=== PATIENT | female | born 2000 | race Caucasian/White ===

== ENCOUNTER 2021-08-06 15:33 | Outpatient (CLI) | payer OTHER, SELFPAY ==
[2021-08-06 16:24] LABS: Amphetamine Urine VISTA NEGATIVE (<1000 ng/mL); Barbiturate Urine VISTA NEGATIVE (< 200 ng/mL); Benzodiazepine Urine VISTA NEGATIVE (< 200 ng/mL); Cocaine Urine VISTA NEGATIVE (< 300 ng/mL); Ecstacy Urine VISTA NEGATIVE (< 500 ng/mL); Methadone Urine VISTA NEGATIVE (< 300 ng/mL); PCP Urine VISTA NEGATIVE (< 25 ng/mL); THC Urine VISTA NEGATIVE (< 50 ng/mL); Vista UDS pH Range 6
== END 2021-08-06 23:59 | disposition home or self-care (01) ==
LOC: LABSPEC 15:35
PROVIDERS: Visit Provider Obstetrics & Gynecology
DX: Z34.92 Encounter for supervision of normal pregnancy, unspecified, second trimester (principal)
CPT/HCPCS: 80307

== ENCOUNTER → 2021-09-21 | Outpatient (CLI) | payer OTHER, SELFPAY ==
[2021-09-21 15:50] LABS: Absolute Lymphocyte Count 1.03 X10^3/uL (0.83-4.51); Basophil# 0.02 X10^3/uL; Basophil% 0.2 % (0-1); Eosinophil# 0.17 X10^3/uL; Eosinophils% 1.9 % (0-5); Hematocrit 32.1 % (37-47); Hemoglobin 10.8 g/dL (12.0-15.0); Lymphocyte # 1.03 X10^3/ul (0.83-4.51); Lymphocyte % 11.7 % (19-41); Mean Corp Hgb Conc 33.6 g/dL (32-36); Mean Corpuscular Hgb 30.9 pg (27.0-32.0); Mean Corpuscular Volume 91.7 fL (81-99); Mean Platelet Vol. 10.2 fl (6.2-12.0); Monocyte# 0.47 X10^3/uL; Monocyte% 5.4 % (0-10); NRBC Flagged by Analyzer 0 % (0-5); Neutrophil # 6.99 X10^3/uL (2.7-7.7); Neutrophil % 79.8 % (47-70); Platelet Count 229 K/mm3 (150-450); RBC Distribution Width CV 12.4 % (11.6-14.6); RBC Distribution Width SD 41.1 fl (35.1-43.9); White Blood Count 8.8 K/mm3 (4.4-11.0)
[2021-09-21 16:25] LABS: Glucose Challenge Gest 1H 50g 189 mg/dL (70-140)
[2021-09-24 09:09] LABS: Hepatitis B Surface Antigen Non-Reactive (Nonreactive)
== END | disposition home or self-care (01) ==
LOC: LAB 15:26
PROVIDERS: Obstetrics & Gynecology; Visit Provider Obstetrics & Gynecology
DX: O26.899 Other specified pregnancy related conditions, unspecified trimester (principal); Z67.91 Unspecified blood type, Rh negative; Z3A.18 18 weeks gestation of pregnancy
CPT/HCPCS: 36415; 82950; 85025; 86850; 86900; 86901; 87340

== ENCOUNTER 2021-10-02 10:00 | Outpatient (RCR) | payer SELFPAY | END 2021-10-02 23:59 | LOC: DC 10:00 | PROVIDERS: Referring Provider Nurse Practitioner Women's Health; Visit Provider Nurse Practitioner Women's Health | DX: O24.419 Gestational diabetes mellitus in pregnancy, unspecified control (principal) | CPT/HCPCS: 87070; 87205; 97802; 97803 ==

== ENCOUNTER 2021-10-10 14:22 | Outpatient (RCR) | payer OTHER, MEDICAID, SELFPAY | END 2021-11-01 23:59 | LOC: DC 14:22 | PROVIDERS: Referring Provider Nurse Practitioner Women's Health; Visit Provider Nurse Practitioner Women's Health | DX: O24.419 Gestational diabetes mellitus in pregnancy, unspecified control (principal); Z3A.00 Weeks of gestation of pregnancy not specified | CPT/HCPCS: 97803 ==

== ENCOUNTER → 2021-10-19 | Outpatient (CLI) | payer OTHER, SELFPAY ==
[2021-10-19 13:39] LABS: Absolute Lymphocyte Count 1.04 X10^3/uL (0.83-4.51); Absolute Neutrophil Count 5.8 X10^3/uL (2.0-7.7); Basophil# 0.02 X10^3/uL; Basophil% 0.3 % (0-1); Eosinophil# 0.14 X10^3/uL; Eosinophils% 1.8 % (0-5); Hematocrit 32.6 % (37-47); Lymphocyte # 1.04 X10^3/ul (0.83-4.51); Lymphocyte % 13.6 % (19-41); Mean Corp Hgb Conc 33.7 g/dL (32-36); Mean Corpuscular Hgb 30.7 pg (27.0-32.0); Mean Corpuscular Volume 91.1 fL (81-99); Mean Platelet Vol. 10.2 fl (6.2-12.0); Monocyte# 0.55 X10^3/uL; Monocyte% 7.2 % (0-10); NRBC Flagged by Analyzer 0 % (0-5); Neutrophil # 5.81 X10^3/uL (2.7-7.7); Neutrophil % 75.9 % (47-70); Platelet Count 216 K/mm3 (150-450); RBC Distribution Width CV 12.4 % (11.6-14.6); RBC Distribution Width SD 40.9 fl (35.1-43.9); Red Blood Count 3.58 M/mm3 (4.2-5.4); White Blood Count 7.7 K/mm3 (4.4-11.0)
== END | disposition home or self-care (01) ==
LOC: LAB 12:29
PROVIDERS: Referring Provider Obstetrics & Gynecology; Visit Provider Obstetrics & Gynecology
DX: O99.013 Anemia complicating pregnancy, third trimester (principal); Z3A.00 Weeks of gestation of pregnancy not specified
CPT/HCPCS: 36415; 85025

== ENCOUNTER → 2021-11-16 | Outpatient (CLI) | payer OTHER, SELFPAY ==
--- NOTE | 2021-11-16 12:19 | US_ITS ---
STUDY: SECOND AND THIRD TRIMESTER OBSTETRICAL ULTRASOUND REASON FOR EXAM: Female, 21 years old growth LMP: 03/03/2021. TECHNIQUE: Transabdominal TECHNICAL QUALITY: Adequate. PRIOR ULTRASOUND: None. FINDINGS: There is a single intrauterine fetus. The fetus is in a cephalic presentation. There is demonstrated cardiac activity with a heart rate of 141 bpm. There is a normal amniotic fluid volume. The largest amniotic fluid pocket measures 3.5 cm x 2.4 cm. The amniotic fluid index (LEMUEL) is 8.11 cm. The placenta is posterior in location and is not low lying. There are Grade 1 placental changes. The adnexal regions are not visualized. BIOMETRY: BPD: 9.18 cm: 37 weeks, 1 days HC: 33.31 cm: 38 weeks, 0 days AC: 33.12 cm: 37 weeks, 0 days FL: 6.83 cm: 35 weeks, 0 days CI: 82% FL/BPD: 74% FL/HC: FL/AC: 21% HC/AC: 1.01 age by current US: 36 weeks, 6 days. JOELLE by current US: 12/08/2021. Estimated weight: 3006 grams, +/- 451 grams, 51 %. Age by LMP: 36 weeks, 6 days. JOELLE by LMP: 12/08/2021. US/OB Limited With Biometrics IMPRESSION: Single live intrauterine gestation with a mean gestational age of 36 weeks and 6 days. Electronically Signed: Devaughn Pope MD at 13:31 EDT ,
== END | disposition home or self-care (01) ==
PROVIDERS: Referring Provider Obstetrics & Gynecology; Visit Provider Obstetrics & Gynecology
DX: O24.410 Gestational diabetes mellitus in pregnancy, diet controlled (principal); Z3A.36 36 weeks gestation of pregnancy
CPT/HCPCS: 76816; 87081

== ENCOUNTER 2021-12-04 12:38 | Outpatient (CLI) | payer OTHER, SELFPAY ==
[2021-12-04 13:00] VITALS: BMI 34.9
[2021-12-04 13:06] VITALS: BP 132/62; PULSE 78; TEMP 36.9; O2SAT 98
[2021-12-04 13:40] LABS: ROM Internal Control Test YES-OK TO RESULT pt. (Internal QC); ROM Patient Test Negative (Negative)
--- NOTE | 2021-12-08 09:41 | OB.TRI.HP_ITS ---
HPI - General General Date of Admission: 12/08/21 HPI Narrative BOBBI HOWARD, is a 21 F who presents to L&D ( @ 39 weeks) for possible srom. no vaginal bleeding ,contractions, or dec fm. Maternal Data Information JOELLE Calculator Estimated Delivery Date Method Current WG Current Estimate 12/08/21 LMP (Certain) 40w 0d PFSH PFSH Medical History (Updated 12/08/21 @ 09:[address] Salena Navarrete, ) Gestational diabetes Headache Migraine Allergy/AdvReac Type Severity Reaction Status Date / Time No Known Allergies Allergy Verified 12/07/21 19:31 Family History Grandmother Breast cancer Ovarian cancer Diabetes Grandfather Heart disease Surgical History (Updated 12/08/21 @ 09:[address] Salena Navarrete, ) [place] teeth removed Social History Smoking Status: Never smoker alcohol intake: never substance use type: does not use caffeine: Yes what type of physical activity do you participate in: none 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 History 1 Elective abortions Hx Para 0 Spontaneous abortions Hx # Term Pregnancies Ectopic pregnancies Hx # Pregnancies Multiple births # of living children Visit Details Expected Delivery Route/Plan IOL by 39-40 Labor Preferences- CB/BF classes: labor support person: mynor labor intervention preferences: [] pain management options preferred: open to epidural cut cord/dad catch: [] : [] PP control planned: [] discussed possible routes of delivery and associated risks: [] special requests: [] Plans Covid status: discussed Flu vaccine: discussed Tdap vaccine: given Rhogam:given LARC form signed: declined movement and labor precautions reviewed. Problem list reviewed and updated with the most current plan of care details and appropriate orders placed. Relevant counseling for the gestational age provided. Continue routine care and follow up unless otherwise noted in visit notes/problem list details OB Flowsheet Initial Weight: Not Recorded Date -?-?-?-?-?-?-?-?-?-?-?-?- EGA Weight BP Urine Prot -?-?-?-?-?-?-?--?-?-?-?-?- Glucose FHR FuHt Pres Dilation -?-?-?-?-?-?-?-?-?-?-?-?- Effaced St Visit Note 05/14/21 -?-?-?-?-?-?-?-?-?-?-?-?- 10w 2d 170 lb 118/80 -?-?-?-?-?-?-?-?-?-?-?-?- 165 -?-?-?-?-?-?-?-?-?-?-?-?- JV- transfer ob in from [place]. waiting on lab, notes, and ultrasound. declines genetic testing 06/13/21 -?-?-?-?-?-?-?-?-?-?-?-?- 14w 4d 174 lb 4 oz 120/80 Nega tive -?-?-?-?-?-?-?-?-?-?-?-?- Negative 145 -?-?-?-?-?-?-?-?-?-?-?-?- JV- no lof, vagi nal bleeding or cramping. records from [facility] are in chart. 07/09/21 -?-?-?-?-?-?-?-?-?-?-?-?- 18w 2d 175 lb 118/80 Negative -?-?-?-?-?-?-?-?-?-?-?-?- Negative 145 -?-?-?-?-?-?-?-?-?-?-?-?- SM- no vb lof cr amping US scheduled 08/06/21 -?-?-?-?-?-?-?-?-?-?-?-?- 22w 2d 183 lb 118/74 -?-?-?-?-?-?-?-?-?-?-?-?- 148 -?-?-?-?-?-?-?-?-?-?-?-?- MH-No VB, LOF. G [place] FM. Will complete anatomy US next week. 09/05/21 -?-?-?-?-?-?-?-?-?-?-?-?- 26w 4d 189 lb 8 oz 110/70 Nega tive -?-?-?-?-?-?-?-?-?-?-?-?- Negative 138 25 -?-?-?-?-?-?-?-?-?-?-?-?- JV- no lof, vagi nal bleeding, or cramping other than some round ligament pain when walking. gct ordered for next visit 09/21/21 -?-?-?-?-?-?-?-?-?-?-?-?- 28w 6d 193 lb 120/84 Negative -?-?-?-?-?-?-?-?-?-?-?-?- Negative 135 29 -?-?-?-?-?-?-?-?-?-?-?-?- SM- no vb lof go od fm no regular ctx rhogam and tdap today 09/26/21 -?-?-?-?-?-?-?-?-?-?-?-?- 29w 4d 194 lb 4 oz 122/60 Nega tive -?-?-?-?-?-?-?-?-?-?-?-?- Negative 143 -?-?-?-?-?-?-?-?-?-?-?-?- -work in for v aginal itching. No VB, LOF. Good FM. Normal pelvic exam, culture pending. 10/05/21 -?-?-?-?-?-?-?-?-?-?-?-?- 30w 6d 195 lb 4 oz 122/66 Nega tive -?-?-?-?-?-?-?-?-?-?-?-?- Negative 130 32 -?-?-?-?-?-?-?-?-?-?-?-?- Sm- no vb lof go od fm no reular ctx BS well controlled 10/19/21 -?-?-?-?-?-?-?-?-?-?--?-?- 32w 6d 197 lb 122/58 -?-?-?-?-?-?-?-?-?-?-?-?- 160 33 -?-?-?-?-?-?-?-?-?-?-?-?- SM- no vb lof go od fm no regular ctx BS well controlled. 11/02/21 -?-?-?-?-?-?-?-?-?-?-?-?- 34w 6d 199 lb 2 oz 120/78 Nega tive -?-?-?-?-?-?-?-?-?-?-?-?- Negative 150 35 0 -?-?-?-?-?-?-?-?--?-?-?-?- 0 -4 JV- pt req uesting vag exam as going to [place] for vacation. labor precautions discussed. GBS next visit. 11/16/21 -?-?-?-?-?-?-?-?-?-?-?-?- 36w 6d 203 lb 120/76 Negative -?-?-?-?-?-?-?-?-?-?-?-?- Negative 150 38 Cephalic -?-?-?-?-?-?-?-?-?-?-?-?- SM- no vb lof go od fm no regular ctx 11/23/21 -?-?-?-?-?-?-?-?-?-?-?-?- 37w 6d 205 lb 136/82 -?-?-?-?-?-?-?-?-?-?-?-?- 140 38 Cephalic 1 -?-?-?-?-?-?-?-?-?-?-?-?- 60 -3 SM- no vb lof good fm no regular ctx BS well controlled 11/29/21 -?-?-?-?-?-?-?-?-?-?-?-?- 38w 5d 209 lb 118/80 Negative -?-?-?-?-?-?-?-?-?-?-?-?- Negative 156 38 Cephalic 1 -?-?-?-?-?-?-?-?-?-?-?-?- 60 -3 JV-normal glucose, no lof, va ginal bleeding or dec fm. ROS Constitutional Constitutional: Reports systems reviewed and no addt'l complaints, except as documented Gastrointestinal Gastrointestinal: Denies bloating, constipation, cramping, diarrhea, nausea or vomiting Genitourinary Genitourinary: Reports other Details: Denies vaginal odor, vaginal bleeding, or vaginal discharge ; Denies difficulty urinating or flank pain Physical Exam HEENT normocephalic Resp normal respiratory effort and normal air movement no CVA tenderness Extremity normal to inspection General Extremity: edema bilateral (trace ) NST FHR Rate Baby A Baseline: 140 Variability:: Moderate Accelerations:: 15 x 15 Decelerations:: None NST Reactive:: Yes FHR Category:: Category I Assessment & Plan (1) False labor: PLAN: plan for IOL at 39 weeks 6 days (GDMA1) labor precautions discussed Charges/Coding Multi Select Codes Visit Charges Office Visit/Consults: 94964 OV L3 Est Urinary/Genital Urinary/Genital CPT Codes: 73401-36 non-stress test Interp
--- NOTE | 2021-12-08 09:41 | OB.TRI.NOTE ---
HPI - General General Date of Admission: 12/08/21 HPI Narrative BOBBI HOWARD, is a 21 F who presents to L&D ( @ 39 weeks) for possible srom. no vaginal bleeding ,contractions, or dec fm. Maternal Data Information JOELLE Calculator Estimated Delivery Date Method Current WG Current Estimate 12/08/21 LMP (Certain) 40w 0d PFSH PFSH Medical History (Updated 12/08/21 @ 09:[address] Salena Navarrete, ) Gestational diabetes Headache Migraine Allergy/AdvReac Type Severity Reaction Status Date / Time No Known Allergies Allergy Verified 12/07/21 19:31 Family History Grandmother Breast cancer Ovarian cancer Diabetes Grandfather Heart disease Surgical History (Updated 12/08/21 @ 09:[address] Salena Navarrete, ) [place] teeth removed Social History Smoking Status: Never smoker alcohol intake: never substance use type: does not use caffeine: Yes what type of physical activity do you participate in: none 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 History 1 Elective abortions Hx Para 0 Spontaneous abortions Hx # Term Pregnancies Ectopic pregnancies Hx # Pregnancies Multiple births # of living children Visit Details Expected Delivery Route/Plan IOL by 39-40 Labor Preferences- CB/BF classes: labor support person: mynor labor intervention preferences: [] pain management options preferred: open to epidural cut cord/dad catch: [] : [] PP control planned: [] discussed possible routes of delivery and associated risks: [] special requests: [] Plans Covid status: discussed Flu vaccine: discussed Tdap vaccine: given Rhogam:given LARC form signed: declined movement and labor precautions reviewed. Problem list reviewed and updated with the most current plan of care details and appropriate orders placed. Relevant counseling for the gestational age provided. Continue routine care and follow up unless otherwise noted in visit notes/problem list details OB Flowsheet Initial Weight: Not Recorded Date <del>?</del> EGA Weight BP Urine Prot <del>?</del> Glucose FHR FuHt Pres Dilation <del>?</del> Effaced St Visit Note 05/14/21 <del>?</del> 10w 2d 170 lb 118/80 <del>?</del> 165 <del>?</del> JV- transfer ob in from [place]. waiting on lab, notes, and ultrasound. declines genetic testing 06/13/21 <del>?</del> 14w 4d 174 lb 4 oz 120/80 Negative <del>?</del> Negative 145 <del>?</del> JV- no lof, vaginal bleeding or cramping. records from [facility] are in chart. 07/09/21 <del>?</del> 18w 2d 175 lb 118/80 Negative <del>?</del> Negative 145 <del>?</del> SM- no vb lof cramping US scheduled 08/06/21 <del>?</del> 22w 2d 183 lb 118/74 <del>?</del> 148 <del>?</del> MH-No VB, LOF. Good FM. Will complete anatomy US next week. 09/05/21 <del>?</del> 26w 4d 189 lb 8 oz 110/70 Negative <del>?</del> Negative 138 25 <del>?</del> JV- no lof, vaginal bleeding, or cramping other than some round ligament pain when walking. gct ordered for next visit 09/21/21 <del>?</del> 28w 6d 193 lb 120/84 Negative <del>?</del> Negative 135 29 <del>?</del> SM- no vb lof good fm no regular ctx rhogam and tdap today 09/26/21 <del>?</del> 29w 4d 194 lb 4 oz 122/60 Negative <del>?</del> Negative 143 <del>?</del> MH-work in for vaginal itching. No VB, LOF. Good FM. Normal pelvic exam, culture pending. 10/05/21 <del>?</del> 30w 6d 195 lb 4 oz 122/66 Negative <del>?</del> Negative 130 32 <del>?</del> Sm- no vb lof good fm no reular ctx BS well controlled 10/19/21 <del>?</del> 32w 6d 197 lb 122/58 <del>?</del> 160 33 <del>?</del> SM- no vb lof good fm no regular ctx BS well controlled. 11/02/21 <del>?</del> 34w 6d 199 lb 2 oz 120/78 Negative <del>?</del> Negative 150 35 0 <del>?</del> 0 -4 JV- pt requesting vag exam as going to [place] for vacation. labor precautions discussed. GBS next visit. 11/16/21 <del>?</del> 36w 6d 203 lb 120/76 Negative <del>?</del> Negative 150 38 Cephalic <del>?</del> SM- no vb lof good fm no regular ctx 11/23/21 <del>?</del> 37w 6d 205 lb 136/82 <del>?</del> 140 38 Cephalic 1 <del>?</del> 60 -3 SM- no vb lof good fm no regular ctx BS well controlled 11/29/21 <del>?</del> 38w 5d 209 lb 118/80 Negative <del>?</del> Negative 156 38 Cephalic 1 <del>?</del> 60 -3 JV-normal glucose, no lof, va ginal bleeding or dec fm. ROS Constitutional Constitutional: Reports systems reviewed and no addt'l complaints, except as documented Gastrointestinal Gastrointestinal: Denies bloating, constipation, cramping, diarrhea, nausea or vomiting Genitourinary Genitourinary: Reports other Details: Denies vaginal odor, vaginal bleeding, or vaginal discharge ; Denies difficulty urinating or flank pain Physical Exam HEENT normocephalic Resp normal respiratory effort and normal air movement no CVA tenderness Extremity normal to inspection General Extremity: edema bilateral (trace ) NST FHR Rate Baby A Baseline: 140 Variability:: Moderate Accelerations:: 15 x 15 Decelerations:: None NST Reactive:: Yes FHR Category:: Category I Assessment & Plan (1) False labor: PLAN: plan for IOL at 39 weeks 6 days (GDMA1) labor precautions discussed Charges/Coding Multi Select Codes Visit Charges Office Visit/Consults: 74164 OV L3 Est Urinary/Genital Urinary/Genital CPT Codes: 51795-31 non-stress test Interp
== END 2021-12-04 14:35 | disposition home or self-care (01) ==
LOC: WPOUT 12:51 → WP 12:52
PROVIDERS: Visit Provider Obstetrics & Gynecology
DX: O47.1 False labor at or after 37 completed weeks of gestation (principal); Z3A.39 39 weeks gestation of pregnancy
CPT/HCPCS: 59025; 59050; 84112; 99218; G0378

== ENCOUNTER 2021-12-07 07:10 | Inpatient (IN) | payer OTHER, SELFPAY ==
[2021-12-07] VITALS (48 sets, daily range): BP systolic 103–138; BP diastolic 50–70; PULSE 40–96; TEMP 36.1–37; O2SAT 97–100; BMI 35.2
[2021-12-07] MEDS: Lactated Ringers 1,000 ML 50 ML IV (07:35)
--- NOTE | 2021-12-07 07:36 | HP.PCM.OB_ITS ---
HPI - General General Date of Admission: 12/07/21 HPI Narrative BOBBI HOWARD, is a 21 y/o @ 39 weeks 6 days who presents to L&D for IOL for gestational diabetes, Diet controlled. Maternal Data Information JOELLE Calculator Estimated Delivery Date Method Current WG Current Estimate 12/08/21 LMP (Certain) 39w 6d PFSH PFSH Home Medications docosahexaenoic acid 200 mg capsule ( DHA) mg PO 05/14/21 [History Last Taken Unknown] blood sugar diagnostic (Blood Glucose Test strips) #50 ea 09/24/21 [Rx Last Taken Unknown] blood-glucose meter (Blood Glucose Monitoring kit) #1 ea 09/24/21 [Rx Last Taken Unknown] lancets 31 gauge #100 ea 09/24/21 [Rx Last Taken Unknown] [id number]-[id number] 1 mg tablet tab PO 12/04/21 [History Last Taken 11/02/21] Allergy/AdvReac Type Severity Reaction Status Date / Time No Known Allergies Allergy Verified 12/04/21 13:02 Family History Grandmother Breast cancer Ovarian cancer Diabetes Grandfather Heart disease Social History Smoking Status: Never smoker alcohol intake: never substance use type: does not use caffeine: Yes what type of physical activity do you participate in: none 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 History 1 Elective abortions Hx Para Spontaneous abortions Hx # Term Pregnancies Ectopic pregnancies Hx # Pregnancies Multiple births # of living children Visit Details Expected Delivery Route/Plan IOL by 39-40 Labor Preferences- CB/BF classes: labor support person: mynor labor intervention preferences: [] pain management options preferred: open to epidural cut cord/dad catch: [] : [] PP control planned: [] discussed possible routes of delivery and associated risks: [] special requests: [] Plans Covid status: discussed Flu vaccine: discussed Tdap vaccine: given Rhogam:given LARC form signed: declined movement and labor precautions reviewed. Problem list reviewed and updated with the most current plan of care details and appropriate orders placed. Relevant counseling for the gestational age provided. Continue routine care and follow up unless otherwise noted in visit notes/problem list details OB Flowsheet Initial Weight: Not Recorded Date -?-?-?-?--?-?-?-?-?-?-?-?- EGA Weight BP Urine Prot -?-?-?-?-?-?-?-?-?-?-?-?- Glucose FHR FuHt Pres Dilation -?-?-?-?-?-?-?-?-?-?-?-?- Effaced St Visit Note 05/14/21 -?-?-?-?-?-?-?-?-?-?-?-?- 10w 2d 170 lb 118/80 -?-?-?-?-?-?-?-?-?-?-?-?- 165 -?-?-?-?-?-?-?-?-?-?-?-?- JV- transfer ob in from [place]. waiting on lab, notes, and ultrasound. declines genetic testing 06/13/21 -?-?-?-?-?-?-?-?-?-?-?-?- 14w 4d 174 lb 4 oz 120/80 Nega tive -?-?-?-?-?-?-?-?-?-?-?-?- Negative 145 -?-?-?-?-?-?-?-?-?-?-?-?- JV- no lof, vagi nal bleeding or cramping. records from [facility] are in chart. 07/09/21 -?-?-?-?-?-?-?-?-?-?-?-?- 18w 2d 175 lb 118/80 Negative -?-?-?-?-?-?-?-?-?-?-?-?- Negative 145 -?-?-?-?-?-?-?-?-?-?-?-?- SM- no vb lof cr amping US scheduled 08/06/21 -?-?-?-?-?-?-?-?-?-?-?-?- 22w 2d 183 lb 118/74 -?-?-?-?-?-?-?-?-?-?-?-?- 148 -?-?-?-?-?-?-?-?-?-?-?-?- -No VB, LOF. G ood FM. Will complete anatomy US next week. 09/05/21 -?-?-?-?-?-?-?-?-?-?-?-?- 26w 4d 189 lb 8 oz 110/70 Nega tive -?-?-?-?-?-?-?-?-?-?-?-?- Negative 138 25 -?-?-?-?-?-?-?-?-?-?-?-?- JV- no lof, vagi nal bleeding, or cramping other than some round ligament pain when walking. gct ordered for next visit 09/21/21 -?-?-?-?-?-?-?-?-?-?-?-?- 28w 6d 193 lb 120/84 Negative -?-?--?-?-?-?-?-?-?-?-?-?- Negative 135 29 -?-?-?-?-?-?-?-?-?-?-?-?- SM- no vb lof go od fm no regular ctx rhogam and tdap today 09/26/21 -?-?-?-?-?-?-?-?-?-?-?-?- 29w 4d 194 lb 4 oz 122/60 Nega tive -?-?-?-?-?-?-?-?-?-?-?-?- Negative 143 -?-?-?-?-?-?-?-?-?-?-?-?- -work in for v aginal itching. No VB, LOF. Good FM. Normal pelvic exam, culture pending. 10/05/21 -?-?-?-?-?-?-?-?-?-?-?-?- 30w 6d 195 lb 4 oz 122/66 Nega tive -?-?-?-?-?-?-?-?-?-?-?-?- Negative 130 32 -?-?-?-?-?-?-?-?-?-?-?-?- Sm- no vb lof go od fm no reular ctx BS well controlled 10/19/21 -?-?-?-?-?-?-?-?-?-?-?-?- 32w 6d 197 lb 122/58 -?-?-?-?-?-?-?-?-?-?-?-?- 160 33 -?-?-?-?-?-?-?-?-?-?-?-?- SM- no vb lof go od fm no regular ctx BS well controlled. 11/02/21 -?-?-?-?-?-?-?-?-?-?-?-?- 34w 6d 199 lb 2 oz 120/78 Nega tive -?-?-?-?-?-?-?-?-?-?-?-?- Negative 150 35 0 -?-?-?-?-?-?-?-?-?-?-?-?- 0 -4 JV- pt req uesting vag exam as going to [place] for vacation. labor precautions discussed. GBS next visit. 11/16/21 -?-?-?-?-?-?-?-?-?-?-?-?- 36w 6d 203 lb 120/76 Negative -?-?-?-?-?-?-?-?-?-?-?-?- Negative 150 38 Cephalic -?-?-?-?-?-?-?-?-?-?-?-?- SM- no vb lof go od fm no regular ctx 11/23/21 -?-?-?-?-?-?-?-?-?-?-?-?- 37w 6d 205 lb 136/82 -?-?-?-?-?-?-?-?-?-?-?-?- 140 38 Cephalic 1 -?-?-?-?-?-?-?-?-?-?-?-?- 60 -3 SM- no vb lof good fm no regular ctx BS well controlled 11/29/21 -?-?-?-?-?-?-?-?-?-?-?-?- 38w 5d 209 lb 118/80 Negative -?-?-?-?-?-?-?-?-?-?-?-?- Negative 156 38 Cephalic 1 -?-?-?-?-?-?-?-?-?-?-?-?- 60 -3 JV-normal glucose, no lof, va ginal bleeding or dec fm. ROS Constitutional Constitutional: Denies change in weight, fatigue, fever(s), headache(s), poor appetite or weakness Eyes Eyes: Denies blurry vision, change in vision, seeing flashes or spots in vision ENT HEENT: Denies dizziness, headache(s), loss taste/smell or sore throat Cardiovascular Cardiovascular: Denies chest pain, dizziness, dyspnea, irregular heart rhythm, leg edema, palpitations, rapid heart rate or vomiting Respiratory/Chest Respiratory/Chest: Denies chest tightness, cough, dyspnea or breast pain Gastrointestinal Gastrointestinal: Denies abdominal pain, anorexia, constipation, cramping, diarrhea, hemorrhoids, vomiting or weight changes Genitourinary Genitourinary: Denies dysuria, flank pain, genital lesions, genital pain, urinary frequency or urinary urgency Musculoskeletal Musculoskeletal: Denies back pain, difficulty walking, joint pain, limited range of motion, muscle cramps or numbness Integumentary Integumentary: Denies lesions or unusual bruising Neurologic Neurologic: Denies abnormal movements, abnormal speech, dizziness, numbness, seizure-like activity or syncope Psychiatric Psychiatric: Denies anxiety, behavioral changes, change in appetite, change in libido, cognitive impairment, confusion, depression, difficulty concentrating, hallucinations or suicidal thoughts Endocrine Endocrinology: Denies excessive sweating, polydipsia or polyuria Hematologic/Lymphatic Hematologic/Lymphatic: Denies easy bleeding, easy bruising or lymphadenopathy Allergic/Immunologic Allergic/Immunologic: Denies itchy eyes, lip swelling, seasonal rhinorrhea, rhinitis, throat swelling, tongue swelling, eczemia, wheezing or asthma Vital Signs Vital Signs Vital Signs: 12/07/21 07:29 12/07/21 07:29 12/07/21 07:29 Pulse Rate 88 Blood Pressure 132/65 H BP Systolic 132 BP Diastolic 65 Pulse Ox 97 Physical Exam Const alert, oriented x3, no apparent distress and healthy appearing General Appearance: cooperative; Negative for anxious HEENT normocephalic Face and Sinus: normal facial exam Eyes EOMs intact bilaterally and no scleral icterus General Eye: normal appearance of both eyes Neck full ROM and supple Lymph Lymphatic: no lymphadenopathy noted Chest Chest: abnormal inspection of the chest Resp normal respiratory effort Effort and Inspection: able to speak in complete sentences Cardio regular rate GI soft to palpation and non-tender Inspection: gravid Palpation: soft; Negative for tender external exam normal Amniotic Fluid: ROM+plus Back/Spine no CVA tenderness Extremity normal to inspection, full ROM and no clubbing, cyanosis or edema General Extremity: Negative for calf tenderness or edema Skin Lesions: no lesions Rashes: no rashes Psych mental status grossly normal Labs Labs Labs: Blood Type A NEGATIVE Antibody Screen NEGATIVE Hct 32.6 % (37-47) L Hgb 11.0 g/dL (12.0-15.0) L Obstetrics US Hep Bs Antigen Non-Reactive (Nonreactive) Glucose 1 Hr 50 gm 189 mg/dL (70-140) H Assessment & Plan (1) Gestational diabetes: QUALIFIERS: Gestational diabetes mellitus control: diet-controlled Trimester: second trimester Qualified Code(s): O24.410 - Gestational diabetes mellitus in , diet controlled COMMENT: endocrine consult. diet controlled. plan growth us 36 weeks and deliver by 40. (2) Anemia affecting in third trimester: COMMENT: iron supplement repeat cbc 4 weeks (3) Rh negative status during : QUALIFIERS: Trimester: second trimester Qualified Code(s): O26.892 - Other specified related conditions, second trimester; Z67.91 - Unspecified blood type, Rh negative COMMENT: rhogam 09/21/21 (4) : QUALIFIERS: Weeks of gestation: 38 weeks Qualified Code(s): Z3A.38 - 38 weeks gestation of COMMENT: GBS NEGATIVE, anatomy nl, [facility]. carrier, genetic, ntd screening declined. (5) Supervision of normal : QUALIFIERS: Normal : normal first Trimester: second trimester Qualified Code(s): Z34.02 - Encounter for supervision of normal first , second trimester COMMENT: PRR JOELLE 12/08/21 girl Virgilio boyfrienshorty Lowe (6) Pituitary adenoma: COMMENT: followed by endo- stable and small, told to fu after delivery unless develops symptoms. PLAN: Plan Patient presents IOL, plan management for with pitocin/peraza Pain management: plans epidural. GBS negative. RH neg Management of any complications: none I have reviewed the [facility] and made any clinically relevant updates.
[2021-12-07 07:58] LABS: Absolute Lymphocyte Count 1.18 X10^3/uL (0.83-4.51); Absolute Neutrophil Count 5.2 X10^3/uL (2.0-7.7); Basophil# 0.02 X10^3/uL; Basophil% 0.3 % (0-1); Eosinophil# 0.12 X10^3/uL; Eosinophils% 1.7 % (0-5); Hematocrit 32.5 % (37-47); Hemoglobin 10.8 g/dL (12.0-15.0); Lymphocyte # 1.18 X10^3/ul (0.83-4.51); Lymphocyte % 16.4 % (19-41); Mean Corp Hgb Conc 33.2 g/dL (32-36); Mean Corpuscular Hgb 29.4 pg (27.0-32.0); Mean Corpuscular Volume 88.6 fL (81-99); Mean Platelet Vol. 11.5 fl (6.2-12.0); Monocyte# 0.69 X10^3/uL; Monocyte% 9.6 % (0-10); NRBC Flagged by Analyzer 0 % (0-5); Neutrophil # 5.15 X10^3/uL (2.7-7.7); Neutrophil % 71.3 % (47-70); Platelet Count 211 K/mm3 (150-450); RBC Distribution Width CV 12.3 % (11.6-14.6); RBC Distribution Width SD 39.6 fl (35.1-43.9); Red Blood Count 3.67 M/mm3 (4.2-5.4); White Blood Count 7.2 K/mm3 (4.4-11.0)
[2021-12-07] MEDS: Oxytocin 30 units/NS 500 ml 30 UNITS/500 ML IV.SOLN IV (08:13)
[2021-12-07 08:30] LABS: Bedside Glucose 80 mg/dL (74-106)
[2021-12-07] MEDS: 0.9% Normal Saline Single 100 ML IV.SOLN. INTRA-UTER (08:38)
[2021-12-07 11:11] LABS: Bedside Glucose 80 mg/dL (74-106)
[2021-12-07 13:46] LABS: Bedside Glucose 113 mg/dL (74-106)
[2021-12-07] MEDS: LACTATED RINGERS 500 ML 999 ML IV ×2 (15:49→20:03)
[2021-12-07] MEDS: fentaNYL-bupivacaine (epidural) 100 ML BAG EPIDURAL (16:47)
--- NOTE | 2021-12-07 17:18 | DCINST_ITS ---
Discharge Instructions Diet Discharge Diet: No restrictions Activity Discharge Activity: May Not Drive (for 2 weeks or while taking narcotic pain medications.), May Shower and May Take a Tub Bath (in 7 days.) May resume sexual activity in: 4-6 weeks Weight Bearing Status: Full weight bearing Lifting Restrictions: 20 pounds Dressing / Incision Call your doctor if your incision/area has: Continuous Slow Oozing, Sudden Increased Bleeding, Increased Pain/ Swelling, Increased Redness and Foul Smelling Discharge Call your doctor if you observe: Fever of 101 or Higher and Using more than 1 pad per hour Suture Line Care: Avoid Pulling/Pushing and Avoid Pinching/Bending Cleanse incision/area with: Soap & Water and Keep Dressing Clean & Dry Follow Up Care Please Follow Up With: Salena Navarrete DO When: Call [phone] to make an appointment for an incision check in 1-2 weeks. Test Results: Test results from this visit will be discussed in further detail at your follow- up appointment, if applicable. Discharge Plan Admission Admit Date/Time: 12/07/21 07:10 Primary Reason for Your Visit: section Attending Provider: Salena Navarrete Discharge Orders/Prescriptions Prescriptions: New ibuprofen 600 mg tablet 600 mg PO Q6H PRN (Reason: pain) 7 Days Qty: 30 0RF oxycodone-acetaminophen [Percocet] 5-325 mg tablet 1 tab PO Q4H PRN (Reason: pain) 7 Days Qty: 30 0RF Continued DHA 200 mg capsule PO Discontinued 1 mg Tablet PO No Action (DME) blood-glucose meter [Blood Glucose Monitoring] Kit See Rx Instructions .ROUTE .MEDSUPPLY Qty: 1 0RF Rx Instructions: Check fasting and 2 hours pp (DME) Blood Glucose Test Strip See Rx Instructions .ROUTE .MEDSUPPLY Qty: 50 6RF Rx Instructions: Fasting and 2 hour pp (DME) lancets 31 gauge misc See Rx Instructions .ROUTE .MEDSUPPLY Qty: 100 4RF Rx Instructions: As directed Disposition Disposition (needs filled in before D/C Order can be placed): Home, Self Care
[2021-12-07 17:21] LABS: Bedside Glucose 73 mg/dL (74-106)
--- NOTE | 2021-12-07 18:08 | PN_ITS ---
Progress Note late entry: peraza is now out and patient consents to SROM current tracing: FHT: Moderate variability reactive no decelerations category I tracing [facility]: Contractions difficult to see on monitor as patient is in hands/knees membranes ruptured, clear fluid returned. cx: 4-5/50/-2 A/P: GDM- continue pitocin re-check in 2 hrs
[2021-12-07] MEDS: Lactated Ringers 1,000 ML 200 ML IV (19:38)
[2021-12-07] MEDS: Oxytocin 30 units/NS 500 ml 30 UNITS/500 ML IV.SOLN 334 UNITS IV (21:39)
--- NOTE | 2021-12-07 21:50 | EX.PCM.OBRPT ---
Assessment & Plan (1) Pituitary adenoma: COMMENT: followed by endo- stable and small, told to fu after delivery unless develops symptoms. (2) Supervision of normal : QUALIFIERS: Normal : normal first Trimester: second trimester Qualified Code(s): Z34.02 - Encounter for supervision of normal first , second trimester COMMENT: PRR JOELLE 12/08/21 girl Virgilio Lowe (3) : QUALIFIERS: Weeks of gestation: 38 weeks Qualified Code(s): Z3A.38 - 38 weeks gestation of COMMENT: GBS NEGATIVE, anatomy nl, [facility]. carrier, genetic, ntd screening declined. (4) Rh negative status during : QUALIFIERS: Trimester: second trimester Qualified Code(s): O26.892 - Other specified related conditions, second trimester; Z67.91 - Unspecified blood type, Rh negative COMMENT: rhogam 09/21/21 (5) Anemia affecting in third trimester: COMMENT: iron supplement repeat cbc 4 weeks (6) Gestational diabetes: QUALIFIERS: Gestational diabetes mellitus control: diet-controlled Trimester: second trimester Qualified Code(s): O24.410 - Gestational diabetes mellitus in , diet controlled COMMENT: endocrine consult. diet controlled. plan growth us 36 weeks and deliver by 40. Maternal Data Information JOELLE Calculator Estimated Delivery Date Method Current WG Current Estimate 12/08/21 LMP (Certain) 39w 6d Final JOELLE: 12/08/21 Final JOELLE Source: LMP Gestational age: 39 weeks 6 days Vaginal Delivery Maternal Presentation Maternal Presentation: Medically Indicated Induction Type of Induction: Pitocin, Marshall Bulb and Amniotomy Operative Information Date of Procedure: 12/07/21 Pre-Operative Diagnosis: @ 39 weeks 6 days, gestational diabetes (GDMA1) Post-Operative Diagnosis: @ 39 weeks 6 days, gestational diabetes (GDMA1) Surgery / Procedure Performed: Spontaneous Vaginal Delivery Type of Anesthesia: Epidural Estimated Blood Loss: 100cc Findings Description of Procedure: Patient began pushing and delivered the head in the NEENA presentation. The head was delivered atraumatically. The anterior and posterior shoulders delivered without complication followed by the rest of the and the infant was placed on the maternal abdomen. Delayed cord clamping was employed for approximately 60 seconds. Cord was clamped and cut and gentle traction was applied to the cord and the placenta delivered spontaneously immediately following it was noted to be intact with three-vessel cord. The perineum and vagina were inspected and noted to have a right labial laceration, repaired with a 3-0 vicryl suture. EBL was 100 cc. Patient and infant tolerated delivery well. Presentation: Vertex Amniotic Membrane Rupture Type: Artificial Time of Membrane Rupture: 1:00 pm Amniotic Fluid Description: Clear Placental Delivery Description: Spontaneous Placenta Disposition: [facility] Cord Vessel Description: 3 Vessels Cord Entanglement: None Infant A Gender: Female (1 minute): 9 (5 minute): 9 Delayed Cord Clamping: Yes Post Vaginal Delivery Medications Given After Delivery: IV Pitocin Episiotomy Description: None Laceration: Perineal Extension/lac (right labial) and 1st degree Complication Complications: None Multi Select Codes Urinary/Genital Urinary/Genital CPT Codes: 92355 Vaginal Delivery [facility]
--- NOTE | 2021-12-07 21:54 | DCINST_ITS ---
Discharge Instructions Diet Discharge Diet: No restrictions Activity Discharge Activity: Return to Normal Activity, May Not Drive (while taking narcotic pain medications.) and May Shower May resume sexual activity in: 4-6 weeks Weight Bearing Status: Full weight bearing Dressing / Incision Call your doctor if your incision/area has: Continuous Slow Oozing, Sudden Increased Bleeding, Increased Pain/ Swelling, Increased Redness and Foul Smelling Discharge Call your doctor if you observe: Fever of 101 or Higher and Using more than 1 pad per hour Suture Line Care: Avoid Pulling/Pushing and Avoid Pinching/Bending Cleanse incision/area with: Soap & Water and Keep Dressing Clean & Dry Follow Up Care Please Follow Up With: Salena Navarrete, When: Call [phone] to make an appointment with your doctor in 6 weeks. If you had elevated blood pressure or 4th degree laceration, you will need to be seen in 2 weeks. Test Results: Test results from this visit will be discussed in further detail at your follow- up appointment, if applicable. Discharge Plan Admission Admit Date/Time: 12/07/21 07:10 Primary Reason for Your Visit: vaginal delivery Attending Provider: Salena Navarrete Discharge Orders/Prescriptions Prescriptions: Discontinued 1 mg Tablet PO (DME) blood-glucose meter [Blood Glucose Monitoring] Kit See Rx Instructions .ROUTE .MEDSUPPLY Qty: 1 0RF Rx Instructions: Check fasting and 2 hours pp (DME) Blood Glucose Test Strip See Rx Instructions .ROUTE .MEDSUPPLY Qty: 50 6RF Rx Instructions: Fasting and 2 hour pp (DME) lancets 31 gauge misc See Rx Instructions .ROUTE .MEDSUPPLY Qty: 100 4RF Rx Instructions: As directed Disposition Disposition (needs filled in before D/C Order can be placed): Home, Self Care
[2021-12-07 22:21] LABS: Bedside Glucose 72 mg/dL (74-106)
[2021-12-07 22:21] LABS: Bedside Glucose 83 mg/dL (74-106)
[2021-12-07 23:20] LABS: Bedside Glucose 81 mg/dL (74-106)
[2021-12-08] MEDS: 0.9% Saline Lock 10 ML Syringe IV (00:24)
--- NOTE | 2021-12-08 00:40 | NURSING ---
report given to Beto Vazquez RN who is assuming care of pt at this time
[2021-12-08] MEDS: Acetaminophen 500 MG Tablet 1000 MG PO (04:09)
[2021-12-08 04:20] VITALS: BP 121/52; PULSE 81; RESP 16; TEMP 36.3
[2021-12-08 06:20] LABS: Bedside Glucose 77 mg/dL (74-106)
--- NOTE | 2021-12-08 09:01 | PCM.PN.OB ---
Subjective Subjective Patient doing well without complaints. Tolerating PO. Ambulating and voiding without difficulty. Feeding well. Denies chest pain, shortness of breath, calf pain/swelling, fevers, chills, lightheadedness. Objective Data Objective Data Vital Signs: Vital Signs Temp Pulse Resp BP Pulse Ox O2 Del Method 97.3 F L 81 16 121/52 H 99 Room Air 12/08/21 04:20 12/08/21 04:20 12/08/21 04:20 12/08/21 04:20 12/07/21 23:54 12/08/21 04:20 Oxygen Delivery Method Room Air Weight: 211 lb 6.773 oz Body Mass Index (BMI) 35.2 Intake & Output: Intake and Output for Last 24 Hours 12/06/21 12/07/21 12/08/21 23:59 23:59 23:59 Intake Total 2512.33 / 2512.33 333 / 333 Output Total 250 / 250 900 / 900 Balance 2262.33 / 2262.33 -567 / -567 Lab / Micro Data Result Diagrams: 12/07/21 07:35 Labs: Laboratory Results - last 24 hr 12/07/21 07:35: Blood Type A NEGATIVE, Antibody Screen NEGATIVE 12/07/21 09:22: POC Glucose 80 12/07/21 13:21: POC Glucose 113 H 12/07/21 16:59: POC Glucose 73 L 12/07/21 20:06: POC Glucose 72 L 12/07/21 21:09: POC Glucose 83 12/07/21 22:05: POC Glucose 81 12/08/21 04:30: Screen NEGATIVE, Baby's Blood Type A POSITIVE, Baby's TABATHA NEGATIVE 12/08/21 05:53: POC Glucose 77 Micro: Microbiology 12/07/21 07:35 Nasal Secretion SARS-CoV-2 Antigen (Rapid) - Final ROS Constitutional Constitutional: Denies chills, fatigue, fever(s), poor appetite or weakness Eyes Eyes: Denies blurry vision, change in vision, seeing flashes or spots in vision ENT HEENT: Denies dizziness, headache(s), loss taste/smell or sore throat Cardiovascular Cardiovascular: Denies chest pain, dizziness, dyspnea, irregular heart rhythm, palpitations or rapid heart rate Respiratory/Chest Respiratory/Chest: Denies chest tightness, cough, dyspnea or breast pain Gastrointestinal Gastrointestinal: Denies abdominal pain, constipation or vomiting Genitourinary Genitourinary: Denies dysuria or flank pain Musculoskeletal Musculoskeletal: Denies difficulty walking, joint pain, limited range of motion or numbness Neurologic Neurologic: Denies abnormal movements, abnormal speech, dizziness, numbness, seizure-like activity or syncope Psychiatric Psychiatric: Denies anxiety, behavioral changes, change in appetite, confusion, depression or suicidal thoughts Physical Exam Const alert, oriented x3 and no apparent distress General Appearance: cooperative and comfortable Resp normal respiratory effort Cardio regular rate GI normal to inspection, nondistended, normoactive bowel sounds GI Narrative: uterus is firm below umbilicus Palpation: soft Back/Spine no CVA tenderness and thoraco-lumbar ROM normal Extremity normal to inspection, no clubbing, cyanosis or edema, no calf tenderness and no pedal edema Psych mental status grossly normal, thought process normal, cooperative, affect normal, speech normal, activity/motor behavior normal, denies homicidal ideation and denies suicidal ideation Assessment & Plan (1) Status post vaginal delivery: COMMENT: PATY robinson Poole PLAN: s/p PPD # 1 1. routine post delivery care 2. breast feeding- support given 3. rh negative 4. rubella immune 5. plan for dc to home tomorrow am. 6. support today
[2021-12-08] MEDS: Ibuprofen 600 MG Tablet PO (09:44)
[2021-12-08 09:46] VITALS: BP 113/60; PULSE 77; RESP 14; TEMP 36.2; O2SAT 97
[2021-12-08 11:52] VITALS: BP 134/57; PULSE 95; RESP 15; TEMP 36.7; O2SAT 97
[2021-12-08 17:01] VITALS: BP 111/55; PULSE 76; RESP 16; TEMP 36.6; O2SAT 97
[2021-12-08 19:32] VITALS: BP 115/63; PULSE 80; RESP 16; TEMP 36.6; O2SAT 95
[2021-12-09 01:14] VITALS: BP 115/68; PULSE 70; RESP 16; TEMP 36.7; O2SAT 96
[2021-12-09 07:44] VITALS: BP 107/55; PULSE 77; RESP 16; TEMP 36.6; O2SAT 99
--- NOTE | 2021-12-09 10:01 | PCM.DC.SUM ---
Providers Date of Admission: 12/07/21 Reason For Visit: VAG Diagnosis Discharge Diagnosis (1) Status post vaginal delivery: Status: Acute Hospital Course Operations None Summary of Care Provided Minutes Spent on Discharge: 15 Hospital Course: The patient was admitted for IOL on 12/07/2021 (39 weeks 6 days) for gdma1. A peraza bulb and pitocin were used and after 12 hrs, delivered a viable female infant. She recovered well on ppd#1 and on PPD#2 she requested dc to home. There were no complications during her stay. Physical Exam Const alert, oriented x3 and no apparent distress General Appearance: cooperative and comfortable Resp normal respiratory effort Cardio regular rate GI normal to inspection, nondistended, normoactive bowel sounds GI Narrative: uterus is firm below umbilicus Palpation: soft Back/Spine no CVA tenderness and thoraco-lumbar ROM normal Extremity normal to inspection, no clubbing, cyanosis or edema, no calf tenderness and no pedal edema Psych mental status grossly normal, thought process normal, cooperative, affect normal, speech normal, activity/motor behavior normal, denies homicidal ideation and denies suicidal ideation Weight / BMI Weight Weight: 211 lb 6.773 oz Body Mass Index (BMI) 35.2 ABG / Lab / Microbiology Data Result Diagrams: 12/07/21 07:35 Microbiology: Microbiology 12/07/21 07:35 Nasal Secretion SARS-CoV-2 Antigen (Rapid) - Final D/C Instructions Discharge Diet: No restrictions May resume sexual activity in: 4-6 weeks Weight Bearing Status: Full weight bearing Call your doctor if your incision/area has: Continuous Slow Oozing, Sudden Increased Bleeding, Increased Pain/ Swelling, Increased Redness and Foul Smelling Discharge Call your doctor if you observe: Fever of 101 or Higher and Using more than 1 pad per hour Suture Line Care: Avoid Pulling/Pushing and Avoid Pinching/Bending Cleanse incision/area with: Soap & Water and Keep Dressing Clean & Dry Please Follow Up With: Salena Navarrete, When: Call [phone] to make an appointment with your doctor in 6 weeks. If you had elevated blood pressure or 4th degree laceration, you will need to be seen in 2 weeks. Meaningful Use Info Meaningful Use Diagnoses (Choose all that apply): None applicable Discharge Plan Admission Admit Date/Time: 08/05/22 07:10 Primary Reason for Your Visit: vaginal delivery Attending Provider: Salena Navarrete Discharge Orders/Prescriptions Prescriptions: Discontinued 1 mg Tablet PO (DME) blood-glucose meter [Blood Glucose Monitoring] Kit See Rx Instructions .ROUTE .MEDSUPPLY Qty: 1 0RF Rx Instructions: Check fasting and 2 hours pp (DME) Blood Glucose Test Strip See Rx Instructions .ROUTE .MEDSUPPLY Qty: 50 6RF Rx Instructions: Fasting and 2 hour pp (DME) lancets 31 gauge misc See Rx Instructions .ROUTE .MEDSUPPLY Qty: 100 4RF Rx Instructions: As directed Disposition Disposition (needs filled in before D/C Order can be placed): Home, Self Care
--- NOTE | 2021-12-09 12:35 | NURSING ---
following up with Linda adams FridayDecember 10.
== END 2021-12-09 12:25 | disposition home or self-care (01) | DRG 807 ==
PROVIDERS: Admitting Provider Obstetrics & Gynecology; Visit Provider Obstetrics & Gynecology
DX: O24.420 Gestational diabetes mellitus in childbirth, diet controlled (principal); Z37.0 Single live birth; D35.2 Benign neoplasm of pituitary gland; O26.893 Other specified pregnancy related conditions, third trimester; Z80.3 Family history of malignant neoplasm of breast; Z3A.39 39 weeks gestation of pregnancy; Z67.91 Unspecified blood type, Rh negative; O99.013 Anemia complicating pregnancy, third trimester
CPT/HCPCS: 59025; 59050; 82962; 85025; 85461; 86850; 86900; 86901; 87811; 90384; 99218; J7120; A4216; G0378; J2790

== ENCOUNTER → 2022-01-22 | Outpatient (CLI) | payer OTHER, SELFPAY ==
[2022-01-31 16:13] LABS: HPV Reflexed? NOT INDICATED
== END | disposition home or self-care (01) ==
LOC: LABSPEC 16:42
PROVIDERS: Referring Provider Obstetrics & Gynecology; Visit Provider Obstetrics & Gynecology
DX: Z12.4 Encounter for screening for malignant neoplasm of cervix (principal)
CPT/HCPCS: 88175; G0145

== ENCOUNTER → 2022-12-06 | Outpatient (CLI) | payer OTHER, SELFPAY ==
--- NOTE | 2022-12-06 16:39 | US_ITS ---
STUDY: ULTRASOUND OF THE FEMALE PELVIS - COMPLETE REASON FOR EXAM: Female, 22 years old. heavy menses and pelvic pain LMP: 11/21/2022 TECHNIQUE: Transabdominal TECHNICAL QUALITY: Adequate. COMPARISON: None. FINDINGS: The uterus is anteverted and is in a midline position. The uterus measures 7.2 x 5.6 x 3.8 cm. Normal uterine cervix. The endometrium measures 2 mm in thickness, and is hyperechoic. There is no demonstrated endometrial mass. There is no demonstrated myometrial mass. I.U.D. - The patient does not have an I.U.D. The right ovary is visualized. The right ovary measures 3.5 x 1.6 x 1.4 cm. There is no right ovarian cyst or ovarian mass. There is no visualized right adnexal mass or complex lesion. There is normal arterial and normal venous vascularity. The left ovary is visualized. The left ovary measures 3.0 x 1.9 x 1.3 cm. There is no left ovarian cyst or ovarian mass. There is no visualized left adnexal mass or complex lesion. There is normal arterial and normal venous vascularity. There is no fluid in the cul-de-sac. The pre void volume of the bladder was ml. The post void volume of the bladder was ml. Polycystic ovary disease: No. US/Pelvic (Non ) IMPRESSION: Normal female pelvis. Electronically Signed: Gomez Scott MD at 21:28 EDT ,
== END | disposition home or self-care (01) ==
PROVIDERS: Referring Provider Nurse Practitioner Women's Health; Visit Provider Nurse Practitioner Women's Health
DX: R10.2 Pelvic and perineal pain (principal)
CPT/HCPCS: 76856

== ENCOUNTER → 2024-12-20 | Outpatient (CLI) | payer OTHER, SELFPAY ==
[2024-12-23 05:07] LABS: Chlamydia By Nucleic Acid AMP Negative (Negative); Gonococcus By Nucleic Acid AMP Negative (Negative)
== END | disposition home or self-care (01) ==
LOC: BWCLAB 13:18
PROVIDERS: Referring Provider Obstetrics & Gynecology; Visit Provider Obstetrics & Gynecology
DX: O09.90 Supervision of high risk pregnancy, unspecified, unspecified trimester (principal); Z3A.00 Weeks of gestation of pregnancy not specified; Z12.4 Encounter for screening for malignant neoplasm of cervix
CPT/HCPCS: 87086; 87491; 87591; 88175; G0145

== ENCOUNTER → 2025-03-18 | Outpatient (CLI) | payer OTHER, SELFPAY ==
[2025-03-18 12:42] LABS: Hematocrit 31.2 % (37-47); Hemoglobin 10.6 g/dL (12.0-15.0); Immature Granulocytes Count 0.050 X10^3/uL (0.0-0.0); Mean Corp Hgb Conc 34.0 g/dL (32-36); Mean Corpuscular Volume 89.1 fL (81-99); Mean Platelet Vol. 10.7 fl (6.2-12.0); NRBC Flagged by Analyzer 0 % (0-5); Platelet Count 241 K/mm3 (150-450); RBC Distribution Width CV 12.8 % (11.6-14.6); RBC Distribution Width SD 41.8 fl (35.1-43.9); Red Blood Count 3.50 M/mm3 (4.2-5.4); White Blood Count 6.3 K/mm3 (4.4-11.0)
[2025-03-18 13:20] LABS: HIV Nonreactive (Nonreactive); Hepatitis B Surface Antigen Nonreactive (Nonreactive); Hepatitis C Antibody Nonreactive (Nonreactive); Syphilis Antibodies Nonreactive (Nonreactive)
== END | disposition home or self-care (01) ==
LOC: BWCLAB 11:49
PROVIDERS: Visit Provider Obstetrics & Gynecology
DX: O09.90 Supervision of high risk pregnancy, unspecified, unspecified trimester (principal); O99.210 Obesity complicating pregnancy, unspecified trimester; Z3A.00 Weeks of gestation of pregnancy not specified
CPT/HCPCS: 36415; 83036; 85025; 86703; 86762; 86780; 86803; 86850; 86900; 86901; 87340

== ENCOUNTER → 2025-03-24 | Outpatient (CLI) | payer OTHER, SELFPAY | END | disposition home or self-care (01) | LOC: PSN 12:00 | PROVIDERS: Referring Provider Internal Medicine Cardiovascular Disease; Visit Provider Internal Medicine Cardiovascular Disease | DX: I49.3 Ventricular premature depolarization (principal) | CPT/HCPCS: 93225; 93226 ==

== ENCOUNTER → 2025-03-28 | Outpatient (CLI) | payer OTHER, SELFPAY ==
--- NOTE | 2025-03-28 13:01 | ECHOD_ITS ---
Reason For Study Reason For Study: ARRYHTHMIA Procedure This was a 2D Doppler, Color Flow transthoracic echocardiogram. Exam performed in department. Left Ventricle Normal LV size. Left ventricular systolic function is normal. The left ventricular ejection fraction is 60 %. No regional wall motion abnormalities noted. Right Ventricle Normal RV size. Normal systolic function. Atria Normal left atrium. Normal right atrium. Mitral Valve Normal mitral valve. Tricuspid Valve Normal tricuspid valve. Aortic Valve Normal aortic valve. Trisinus/trileaflet aortic valve. Pulmonic Valve Normal pulmonic valve. Great Vessels Normal aortic root. The pulmonary artery is normal size. Inferior vena cava collapse with respiration. Pericardium/Pleural No pericardial effusion. MMode/2D Measurements & Calculations LVIDd: 5.0 cm IVSd: 0.71 cm asc Aorta Diam: 2.6 cm LVIDs: 3.3 cm LVPWd: 0.73 cm RVDd: 3.6 cm FS: 33.8 % LAV(MOD-bp): 42.3 ml LVAd ap4: 29.2 cm2 LVAd ap2: 32.5 cm2 LAV(MOD-bp) Indexed: 21.7 ml/m2 LVLd ap4: 9.4 cm LVLd ap2: 9.3 cm LAV(MOD-sp2): 31.4 ml EDV(MOD-sp4): 77.9 ml EDV(MOD-sp2): 97.7 ml LAV(MOD-sp4): 46.5 ml EDV(sp4-el): 77.0 ml EDV(sp2-el): 96.5 ml LVAs ap4: 13.5 cm2 LVAs ap2: 15.6 cm2 LVLs ap4: 7.3 cm LVLs ap2: 7.6 cm ESV(MOD-sp4): 23.3 ml ESV(MOD-sp2): 27.7 ml ESV(sp4-el): 21.1 ml ESV(sp2-el): 27.2 ml EF(MOD-sp4): 70.1 % EF(MOD-sp2): 71.6 % EF(sp4-el): 72.6 % SV(MOD-sp4): 54.7 ml SV(MOD-sp2): 70.0 ml SV(sp4-el): 55.9 ml SI(MOD-sp4): 28.0 ml/m2 SI(MOD-sp2): 35.9 ml/m2 LA A4 area: 18.5 cm2 LA dimension(2D): 3.4 cm RA A4 area: 16.4 cm2 TAPSE: 2.3 cm Time Measurements MV dec time: 0.19 sec Doppler Measurements & Calculations MV E max shorty: 89.5 cm/sec Lat Peak E' Shorty: 26.4 cm/sec Med Peak E' Shorty: 14.0 cm/sec MV A max shorty: 55.0 cm/sec E/E' lat: 3.4 E/E' med: 6.4 MV E/A: 1.6 Ao V2 max: 135.2 cm/sec LV V1 max: 100.4 cm/sec MV dec slope: 468.5 cm/sec2 Ao max P.3 mmHg LV V1 max P.0 mmHg Ao V2 mean: 95.7 cm/sec LV V1 mean P.4 mmHg Ao mean P.2 mmHg LV V1 mean: 74.6 cm/sec Ao V2 VTI: 27.3 cm LV V1 VTI: 19.8 cm AV (velocity ratio): 0.73 PA V2 max: 92.2 cm/sec ECHO/Echo Complete Interpretation Summary Normal LV size. Left ventricular systolic function is normal. The left ventricular ejection fraction is 60 %. Structurally normal valves. Ordering Physician: Rogerio Nicholas Performed By: Marcy Horton RDCS
== END | disposition home or self-care (01) ==
PROVIDERS: Referring Provider Internal Medicine Cardiovascular Disease; Visit Provider Internal Medicine Cardiovascular Disease
DX: I49.3 Ventricular premature depolarization (principal)
CPT/HCPCS: 93306

== ENCOUNTER → 2025-05-02 | Outpatient (CLI) | payer OTHER, SELFPAY ==
[2025-05-02 15:12] LABS: Hematocrit 30.8 % (37-47); Hemoglobin 10.5 g/dL (12.0-15.0); Immature Granulocytes Count 0.110 X10^3/uL (0.0-0.0); Mean Corp Hgb Conc 34.1 g/dL (32-36); Mean Corpuscular Volume 89.5 fL (81-99); Mean Platelet Vol. 10.4 fl (6.2-12.0); NRBC Flagged by Analyzer 0 % (0-5); Platelet Count 234 K/mm3 (150-450); RBC Distribution Width CV 12.8 % (11.6-14.6); RBC Distribution Width SD 42.0 fl (35.1-43.9); Red Blood Count 3.44 M/mm3 (4.2-5.4); White Blood Count 6.9 K/mm3 (4.4-11.0)
[2025-05-02 15:43] LABS: Glucose Challenge Gest 1H 50g 123 mg/dL (70-140); HIV Nonreactive (Nonreactive); Syphilis Antibodies Nonreactive (Nonreactive)
== END | disposition home or self-care (01) ==
PROVIDERS: Visit Provider Nurse Practitioner Women's Health
DX: O09.90 Supervision of high risk pregnancy, unspecified, unspecified trimester (principal); Z13.1 Encounter for screening for diabetes mellitus; O26.899 Other specified pregnancy related conditions, unspecified trimester; Z67.91 Unspecified blood type, Rh negative; Z3A.00 Weeks of gestation of pregnancy not specified
CPT/HCPCS: 36415; 82950; 85025; 86703; 86780; 86850; 86900; 86901